=== PATIENT | female | born 1985 | race Caucasian/White ===

== ENCOUNTER 2022-03-17 21:31 | Emergency (ER) | payer MEDICAID, OTHER ==
[2022-03-17 23:06] LABS: ESTIMATED GFR 98 mL/min (>60)
== END 2022-03-18 00:43 | disposition home or self-care (01) ==
LOC: JP.ED 21:31
DX: K80.20 Calculus of gallbladder without cholecystitis without obstruction (principal); R74.8 Abnormal levels of other serum enzymes; Z79.899 Other long term (current) drug therapy
CPT/HCPCS: 36415; 76705; 80053; 82150; 83690; 85025; 99283; 99284